=== PATIENT | female | born 1965 | race Caucasian/White ===

== ENCOUNTER 2017-04-19 09:40 | Inpatient (IN) ==
[2017-04-19 14:01] LABS: MANUAL DIFF NEEDED? NO
[2017-04-19 14:07] LABS: BASO% 0.8 % (0.0-0.8); EOS# 0.82 X1000 (0.0-0.7); EOS% 7.3 % (0.0-10.0); HEMATOCRIT 48.3 % (37.0-47.0); HEMOGLOBIN 16.2 g/dL (12.0-16.0); IMM GRAN# 0.05 X1000 (0.0-0.04); IMM GRAN% 0.4 % (0.0-0.5); LYMPH# 2.42 X1000 (1.2-3.4); LYMPH% 21.5 % (20.5-51.1); MCHC 33.5 g/dL (33-37); MCV 92.4 FL (81-99); MONO# 1.03 X1000 (0.11-0.59); MONO% 9.1 % (1.7-9.3); MPV 10.5 FL (7.4-10.4); NEUT% 60.9 % (42.2-75.2); PLT 286 X1000 (130-400); RBC 5.23 XMIL (4.2-5.4)
[2017-04-19 14:19] LABS: AGAP 13; BUN 12 mg/dL (8-22); CALCIUM 8.8 mg/dL (8.8-10.2); CHLORIDE 100 mmol/L (98-107); COSMO 275; POTASSIUM 4.3 mmol/L (3.5-5.1); SODIUM 138 mmol/L (136-145); TCO2 25 mmol/L (25-35)
[2017-04-19 14:22] LABS: ALBUMIN 4.2 g/dL (3.5-5.0); ALKALINE PHOSPHATASE 56 U/L (32-104); DIRECT BILIRUBIN < 0.20 mg/dL (0.00-0.20); GOT 11 U/L (10-30); GPT 8 U/L (10-36); TOTAL BILIRUBIN 0.24 mg/dL (0.20-1.00); TOTAL PROTEIN 6.7 g/dL (6.3-8.3)
[2017-04-19] MEDS: DUONEB (A & A) INH SCH ×3 (15:16→22:12)
[2017-04-19] MEDS: ROCEPHIN 1 GM/NS 1 GM/50 ML IVPB IV SCH (15:27)
[2017-04-19] MEDS ORDERED: TYLENOL PO PRN (15:33)
[2017-04-19] MEDS ORDERED: TUSSIONEX LIQUID PO PRN (15:33)
[2017-04-19] MEDS ORDERED: ZOFRAN IV PRN (15:33)
[2017-04-19] MEDS: SOLU-MEDROL IV SCH (15:58)
[2017-04-19] MEDS: NS 1,000 ML IV SCH (16:06)
[2017-04-19] MEDS: LOVENOX SUBQ SCH (16:07)
[2017-04-19] MEDS: NICODERM PATCH TD PRN (16:15)
--- NOTE | 2017-04-19 19:12 | HISTORY AND PHYSICAL ---
CHIEF COMPLAINT: Shortness of breath. HISTORY OF PRESENT ILLNESS: This is a 51-year-old female with no major medical problems presenting from clinic today directly admitted for worsening chest x-ray and dyspnea on exertion. She started developing upper respiratory type symptoms last Wednesday, about a week ago, rhinitis, productive cough with yellow mucus and dyspnea on exertion. She denies any fever, ear pain, headaches, sore throat, chest pain, syncope. No nausea, vomiting or diarrhea. She saw her PCP, Kim Tovar, last . A chest x-ray was obtained. It is unclear what was seen then but I do not think there was a focal infiltrate although there may have been a left lower lobe infiltrate developing. She was placed on Levaquin and Tussionex. She has been on that for about 5 days. She was given Rocephin and Decadron in the office. Over the weekend apparently her symptoms worsened, she returned to her PCP today, a repeat chest x-ray was obtained with concern over possible developing pneumonia and she was directly admitted for COPD exacerbation as we will call it, failing outpatient therapy with likely early pneumonia. PAST MEDICAL HISTORY: 1. Reports asthma although with her smoking history I think it more likely is COPD. 2. Environmental allergies. PAST SURGICAL HISTORY: She has had a left meniscus tear, hysterectomy in 2012, tonsillectomy. ALLERGIES: No known drug allergies. SOCIAL HISTORY: She smokes half a pack a day to a pack a day, approximately 30 pack years. Alcohol is 10 beers a week. No recreational drugs. MEDICATIONS: She really is just on her ProAir, Tussionex, Levaquin, Naprosyn for her meniscus tear. REVIEW OF SYSTEMS: Reviewed and otherwise negative x10 point review of systems. PHYSICAL EXAMINATION: VITAL SIGNS: Blood pressure is 135/85, heart rate 82, respiratory rate 18, temperature 98.5 degrees, 94% on room air. GENERAL: Well-developed female in no acute distress. HEENT: Head normocephalic, nontraumatic. Pupils equal, round, reactive to light. Extraocular movements intact. Moist mucous membranes. NECK: Supple. CARDIOVASCULAR EXAMINATION: Regular rate and rhythm. No murmurs, gallops or rubs. PULMONARY EXAMINATION: Diffuse rhonchi. Diffuse end-expiratory wheezes. GASTROINTESTINAL: Soft, nontender, nondistended. Bowel sounds are positive. EXTREMITIES: No clubbing or cyanosis. LYMPHATICS: No peripheral edema. NEUROLOGICAL EXAMINATION: Nonfocal. MUSCULOSKELETAL EXAMINATION: 4/5 in all 4 extremities. LABORATORY DATA: White count of 11, hemoglobin and hematocrit of 16 and 48, platelets 286,000. CMP was normal. Chest x-ray again showed possible early left lower lobe infiltrate, hyperinflated lungs. ASSESSMENT: This is a 51-year-old female with a history of tobacco abuse, allergies and I think likely some early chronic obstructive pulmonary disease, with bronchitis and chronic obstructive pulmonary disease exacerbation. 1. Chronic obstructive pulmonary disease exacerbation. We will continue nebulizer treatments, Rocephin has been started, has not improved on Levaquin, and IV Solu-Medrol. I would strongly recommend obviously tobacco cessation. 2. She needs outpatient pulmonary function tests in the next 2 weeks when she is stabilized. 3. Tobacco abuse. We counseled at length. 4. Early pneumonia. We will repeat her chest x-ray, empiric antibiotics, blood cultures and followup. cc: MD Kim Morrison CRNP
[2017-04-19] MEDS: NAPROSYN PO SCH (20:18)
[2017-04-20] MEDS: SOLU-MEDROL IV SCH ×3 (00:01→15:40)
[2017-04-20] MEDS: DUONEB (A & A) INH SCH ×6 (04:02→23:11)
[2017-04-20] MEDS: NS 1,000 ML IV SCH ×2 (05:10→19:05)
[2017-04-20] MEDS: PRILOSEC PO SCH (06:14)
--- NOTE | 2017-04-20 07:15 | Diag Imaging Result Doc PS360 ---
CHEST-2 VIEWS - 04/20/2017 INDICATION: hypoxia TECHNIQUE: COMPARISON: None FINDINGS: The lungs are normally expanded and clear. Heart size and mediastinal contours are normal. No pneumothorax or pleural effusion. IMPRESSION: Negative exam. Electronically signed by Alex Deluca 04/20/2017 7:13 AM
[2017-04-20 07:18] LABS: HEMATOCRIT 45.4 % (37.0-47.0); MCH 30.9 PG (27-31); MCV 93.4 FL (81-99); MPV 10.6 FL (7.4-10.4); RBC 4.86 XMIL (4.2-5.4)
[2017-04-20 07:45] LABS: AGAP 15; BUN 11 mg/dL (8-22); CALCIUM 8.7 mg/dL (8.8-10.2); CHLORIDE 102 mmol/L (98-107); COSMO 286; POTASSIUM 4.2 mmol/L (3.5-5.1); SODIUM 139 mmol/L (136-145); TCO2 22 mmol/L (25-35)
[2017-04-20] MEDS: NAPROSYN PO SCH ×2 (10:14→20:49)
--- NOTE | 2017-04-20 10:33 | PROGRESS NOTE ---
DATE: 04/19/2017 SUBJECTIVE: This patient feels a little bit better. No acute events overnight. Family members at the bedside, her . She has a [id number] of smoking around half a pack to a pack a day. We had a discussion about smoking cessation. I do not think she wants to quit. OBJECTIVE: Vital Signs: Temperature 97.7 degrees, pulse 112, respiratory rate 20, blood pressure 137/81, oxygen saturation 93% on room air. HEENT: Head normocephalic. No trauma. PERRLA. Neck supple. No JVD. No masses. Central trachea. Cardiovascular: RRR. Tachycardic. Chest: Decreased breath sounds at the bases. Rhonchi at the right lower lung and generalized expiratory wheezing. Abdomen soft, nontender, nondistended. No hepatosplenomegaly. Extremities: No edema. No clubbing. No cyanosis. Neurologic: The patient is alert and oriented x3. No focal neurological deficits. LABORATORY: WBC 13.5, hemoglobin 15, hematocrit 45.4, platelets 293,000. Sodium 139, potassium 4.2, chloride 102, bicarbonate 22, BUN 11, creatinine 0.6, glucose 259. Calcium 8.7. ASSESSMENT AND PLAN: 1. Likely chronic obstructive pulmonary disease exacerbation. She was never diagnosed with chronic obstructive pulmonary disease exacerbation. She is wheezing. She is getting respiratory treatment and oxygen as well. I will continue with IV steroids and ceftriaxone. She is feeling better. 2. Possible early pneumonia. I see some haziness at the level of the right lower lung. We will continue with ceftriaxone for now. 3. Tobacco abuse. I highly advised this patient against tobacco abuse. I will continue with daily cessation education. I talked to the patient about smoking cessation, and also I recommended to follow with a director education. She needs pulmonary function test. As per the , also she snores at home and sometimes she has episodes of apnea. As per the patient, she did a sleep study 5-6 years ago and it was negative. I will leave that issue to the director education. cc: John Guerra MD MTDD
[2017-04-20] MEDS: ROCEPHIN 1 GM/NS 1 GM/50 ML IVPB IV SCH (15:40)
[2017-04-20] MEDS: NICODERM PATCH TD PRN (16:07)
[2017-04-20] MEDS: LOVENOX SUBQ SCH (16:57)
[2017-04-20] MEDS ORDERED: NS 1,000 ML ONE (19:04)
[2017-04-21] MEDS: SOLU-MEDROL IV SCH (00:49)
[2017-04-21] MEDS: DUONEB (A & A) INH SCH ×3 (03:14→11:28)
[2017-04-21] MEDS: PRILOSEC PO SCH (06:08)
[2017-04-21 06:58] LABS: BASO% 0.1 % (0.0-0.8); EOS# 0.01 X1000 (0.0-0.7); HEMATOCRIT 43.3 % (37.0-47.0); HEMOGLOBIN 14.6 g/dL (12.0-16.0); IMM GRAN# 0.18 X1000 (0.0-0.04); IMM GRAN% 0.8 % (0.0-0.5); LYMPH# 1.11 X1000 (1.2-3.4); LYMPH% 5.2 % (20.5-51.1); MANUAL DIFF NEEDED? YES; MCH 31.1 PG (27-31); MCHC 33.7 g/dL (33-37); MCV 92.3 FL (81-99); MONO# 0.82 X1000 (0.11-0.59); MONO% 3.8 % (1.7-9.3); MPV 10.6 FL (7.4-10.4); NEUT% 90.1 % (42.2-75.2); PLT 310 X1000 (130-400); RBC 4.69 XMIL (4.2-5.4)
[2017-04-21 07:45] VITALS: BP 122/74
[2017-04-21 07:49] LABS: AGAP 17; BUN 10 mg/dL (8-22); CHLORIDE 103 mmol/L (98-107); COSMO 290; POTASSIUM 4.6 mmol/L (3.5-5.1); SODIUM 142 mmol/L (136-145); TCO2 22 mmol/L (25-35)
[2017-04-21 07:54] LABS: HEMOGLOBIN A1C 5.8 % (4.8-6.0)
[2017-04-21 08:34] LABS: LYMPHS 8 % (21-51); MONO 4 % (1-9)
[2017-04-21] MEDS ORDERED: SOLU-MEDROL IV SCH (09:00)
[2017-04-21] MEDS: NAPROSYN PO SCH (09:16)
[2017-04-21] MEDS: NS 1,000 ML IV SCH (09:19)
[2017-04-21] MEDS ORDERED: AUGMENTIN PO SCH (21:00)
[2017-04-22] MEDS ORDERED: SPIRIVA INH SCH (07:30)
[2017-04-22] MEDS ORDERED: PREDNISONE PO SCH (09:00)
--- NOTE | 2017-04-22 11:39 | DISCHARGE SUMMARY ---
ADMISSION DATE: 04/19/2017 DISCHARGE DATE: 04/21/2017 DISCHARGE DIAGNOSES: 1. Chronic obstructive pulmonary disease exacerbation. 2. Right lower lung pneumonia. 3. Tobacco abuse. 4. Leukocytosis likely secondary to steroid use. 5. Hyperglycemia likely also with the use of steroids. Her hemoglobin A1c is 5.8. HOSPITAL COURSE: A 51-year-old female with no major medical problems admitted on secondary to shortness of breath mostly with physical activity, productive cough with yellow sputum. She denies nausea, vomiting, headache, fever or chills. She saw her primary care doctor a few days before admission, and a chest x-ray was ordered, they saw a possible infiltrate, and they started this patient on Levaquin and Tussionex, and she took that for about 5 days. She was given Rocephin and Decadron in the office, but after completing treatment, she was feeling worse and she returned to her PCP. She was admitted directly here for COPD exacerbation and pneumonia. We put this patient on respiratory treatment, oxygen nebulizers, antibiotics, and steroids. She was getting better on a daily basis. I had a large conversation about smoking cessation with this patient. She has been smoking for about 30 years, at least half a pack daily. Today, 04/21/2017, this patient was feeling much better. No shortness of breath. No chest pain. No headache and no dizziness. So, I decided to discharge this patient with a strict followup by her primary care doctor. Also, I suggested to this patient to go to a universal grinder set up operator. She needs a pulmonary function test done to corroborate the diagnosis of COPD. DISCHARGE PHYSICAL EXAMINATION: Vital Signs: Temperature 97.9 degrees, pulse 99, respiratory rate 18, blood pressure 122/74, oxygen saturation 95% on room air. HEENT: Head normocephalic. No trauma. PERRLA. Neck: Supple. No JVD. No masses. Central trachea. Chest: Clear to auscultation. No wheezing. No rales. Prolonged expiatory phase. Abdomen: Soft, nontender, nondistended. No hepatosplenomegaly. Extremities: No edema. No clubbing. No cyanosis. Neurologic: The patient was alert and oriented x3. No focal deficits. LABORATORY: WBC 21, hemoglobin 14.6, hematocrit 43.3, platelets 310,000. Sodium 142, potassium 4.6, chloride 103, bicarbonate 22. BUN 10, creatinine 0.6, glucose 240. Hemoglobin A1c 5.8. DISCHARGE MEDICATIONS: 1. Tussionex 5 mL p.o. q.12 hours p.r.n. 2. Naproxen 500 mg p.o. b.i.d. 3. Spiriva 2 puffs inhaler daily. 4. Prednisone 40 mg p.o. daily for 1 week, then 20 for 1 week and then 10 for 1 week, then 5 for 1 week and then 5 every other day for 1 week. 5. Augmentin 875 mg p.o. q.12 hours. TIME DISCHARGING THIS PATIENT: 35 minutes. cc: John Guerra MD
== END 2017-04-21 14:17 | disposition home or self-care (01) ==
LOC: SUATTDRO 09:40 → P.DIRADM 09:40 → 3N 11:59
PROVIDERS: ATTEND Internal Medicine